=== PATIENT | male | born 1990 | race Caucasian/White ===

== ENCOUNTER 2018-12-18 18:35 | Emergency (ER) | payer BC ==
[~2018-12-18] VITALS: Ht 167.6 cm; Wt 101.0 kg
[2018-12-18 18:49] VITALS: BP 120/76
== END 2018-12-18 23:48 | disposition left against medical advice (07) ==
LOC: ER 18:35
DX: J02.9 Acute pharyngitis, unspecified (principal); K14.8 Other diseases of tongue; Z53.21 Procedure and treatment not carried out due to patient leaving prior to being seen by health care provider